=== PATIENT | female | born 1950 | race African-American/Black ===

== ENCOUNTER 2019-02-20 06:36 | Emergency (ER) | payer MEDICARE, MEDICAID ==
[~2019-02-20] VITALS: Ht 167.6 cm; Wt 58.0 kg
[~2019-02-20 06:36] MED LIST: DIPH25CA83 PO; Trazodone; amoxicillin; benazepril; loratadine; lotensin; multivitamins; nasonex
[2019-02-20] MEDS ORDERED: SODIUM CHLORIDE 0.9% 1,000 ML IV ONE (07:20)
[2019-02-20 08:22] LABS: BASOPHILS % 0.6 % (0.0-2.0); EOSINOPHILS % 6.9 % (0.0-5.0); HEMATOCRIT. 39.5 % (36.0-48.0); LYMPHOCYTES % 58.1 % (20.0-50.0); MEAN CORPUSCULAR HEMOGLOBIN 28.7 pg (28.0-32.0); MEAN CORPUSCULAR VOLUME 86.9 fL (81.0-99.0); MEAN PLATELET VOLUME 9.1 fl (7.4-10.4); MONOCYTES % 6.7 % (2.0-8.0); NEUTROPHILS % 27.7 % (40.0-76.0); PLATELET 267 x1000/uL (130-400); RED BLOOD CELL COUNT 4.55 mill/uL (4.2-5.4); RED CELL DISTRIBUTION WIDTH 15.4 % (11.6-14.6)
[2019-02-20 08:26] LABS: CHLORIDE 108 mEq/L (98-107); CLARITY URINE CLEAR (CLEAR); COLOR URINE YELLOW (YELLOW); KETONES URINE NEGATIVE (NEGATIVE); LEUKOCYTE ESTERASE URINE TRACE (NEGATIVE); NITRITE URINE NEGATIVE (NEGATIVE); OCCULT BLOOD URINE NEGATIVE (NEGATIVE); PROTEIN URINE NEGATIVE (NEGATIVE); SPECIFIC GRAVITY URINE 1.018 (1.005-1.030)
[2019-02-20 10:00] VITALS: BP 158/98
[2019-02-20] MEDS ORDERED: IOHEXOL-300 100 ML BOTTLE ONE (10:31)
== END 2019-02-20 10:00 | disposition home or self-care (01) ==
LOC: ER 06:36
DX: R10.84 Generalized abdominal pain (principal); I10 Essential (primary) hypertension; J45.909 Unspecified asthma, uncomplicated
CPT/HCPCS: 36415; 74177; 80053; 81003; 83690; 85025; 85610; 99284; J7030; Q9967

== ENCOUNTER 2019-04-21 08:50 | Emergency (ER) | payer MEDICARE, MEDICAID ==
[~2019-04-21] VITALS: Ht 167.6 cm; Wt 62.0 kg
[2019-04-21] MEDS ORDERED: IBUPROFEN 600MG TABLET PO ONE (11:30)
[2019-04-21] MEDS ORDERED: OXYCODONE HCL/ACETAMINOPHEN 5/325MG TABLET PO ONE (11:30)
[2019-04-21 12:47] VITALS: BP 132/91
== END 2019-04-21 12:49 | disposition home or self-care (01) ==
LOC: ER 08:50
DX: M79.605 Pain in left leg (principal); M79.604 Pain in right leg; I10 Essential (primary) hypertension; J45.909 Unspecified asthma, uncomplicated
CPT/HCPCS: 99283

== ENCOUNTER 2019-05-08 15:09 | Emergency (ER) | payer MEDICARE, MEDICAID ==
[~2019-05-08] VITALS: Ht 167.6 cm; Wt 63.0 kg
[2019-05-08] MEDS ORDERED: KETOROLAC 30MG/ML VIAL IM ONE (22:45)
[2019-05-08 22:55] VITALS: BP 149/80
[2019-05-08] MEDS ORDERED: CYCLOBENZAPRINE 10MG TABLET PO ONE (23:15)
== END 2019-05-08 23:52 | disposition home or self-care (01) ==
LOC: ER 15:09
DX: M54.5 Low back pain (principal); M54.30 Sciatica, unspecified side; I10 Essential (primary) hypertension; J45.909 Unspecified asthma, uncomplicated
CPT/HCPCS: 96372; 99283; J1885

== ENCOUNTER → 2020-02-21 | Outpatient (CLI) | payer MEDICARE, MEDICAID ==
[~2020-02-21] MED LIST changes: +BENA5TAB6 PO; +EMTR1TAB13 PO; +HYDR-4001 PO; +MULT-1146 PO; +TRAZ-251 PO
== END | disposition home or self-care (01) ==
LOC: LAB 12:53
PROVIDERS: ATTEND Neurological Surgery
DX: Z01.818 Encounter for other preprocedural examination (principal); Z11.59 Encounter for screening for other viral diseases
CPT/HCPCS: C9803; U0003

== ENCOUNTER → 2020-02-23 | Day surgery (SDC) | payer MEDICARE, MEDICAID ==
[~2020-02-23] VITALS: Ht 167.6 cm; Wt 64.4 kg
[~2020-02-23] MED LIST changes: +ALBU90AE INH; +ASCO500T20 PO; +BACITRACIN 50,000 UNITS/VIAL ONE; +CALCIUM CHLORIDE 1GM/10ML SYR IV ONE; +CEFAZOLIN SODIUM 1000MG/VIAL ONE; +DEXAMETHASONE 4MG/ML 1ML VIAL ONE; -DIPH25CA83 PO; +EPHEDRINE SULFATE 50MG/ML VIAL ONE; +FENTANYL CITRATE/PF 50MCG/ML 2ML VIAL ONE; +FERR325T23 PO; +GLYCOPYRROLATE 0.2 MG/ML 2ML VIAL ONE; +HYDROMORPHONE HCL/PF 2MG/ML (OR) ONE; +LACTATED RINGERS 1,000 ML IV SCH; +LIDOCAINE HCL/EPINEPHRINE 1%-EPI 1:100,000 20 ML VIAL ONE; +LIDOCAINE HCL/PF 1% 10 MG/ML 5ML VIAL ONE; +MIDAZOLAM HCL 2 MG/2 ML VIAL ONE; +NALOXONE HCL 0.4 MG/ML 1ML VIAL ONE; +NEOSTIGMINE METHYLSULFATE 1MG/ML 10 ML VIAL ONE; +ONDANSETRON HCL 4MG/2ML INJ ONE; +PROPOFOL 200MG/20ML VIAL IV ONE; +ROCURONIUM BROMIDE 10MG/ML VIAL 5ML IV ONE; +SODIUM CHLORIDE 0.9% 10ML VIAL ONE; +THROMBIN (BOVINE) 5000 UNITS/VIAL TOP ONE; -Trazodone; -amoxicillin; -benazepril; +inhaler INH; -loratadine; -lotensin; -multivitamins; -nasonex
[2020-02-23 08:54] LABS: BASOPHILS % 0.6 % (0.0-2.0); EOSINOPHILS % 4.2 % (0.0-5.0); HEMATOCRIT. 43.6 % (36.0-48.0); HEMOGLOBIN. 14.6 g/dL (12.0-16.0); LYMPHOCYTES % 22.7 % (20.0-50.0); MEAN CORPUSCULAR HEMOGLOBIN 30.2 pg (28.0-32.0); MEAN CORPUSCULAR VOLUME 90.2 fL (81.0-99.0); MEAN PLATELET VOLUME 8.7 fl (7.4-10.4); MONOCYTES % 4.4 % (2.0-8.0); NEUTROPHILS % 68.1 % (40.0-76.0); PLATELET 235 x1000/uL (130-400); RED BLOOD CELL COUNT 4.84 mill/uL (4.2-5.4); RED CELL DISTRIBUTION WIDTH 14.4 % (11.6-14.6)
[2020-02-23 09:15] LABS: PARTIAL THROMBOPLASTIN TIME 29.3 sec (23.4-31.0); PROTHROMBIN TIME 10.5 sec (9.6-11.0)
== END | disposition home or self-care (01) ==
LOC: OR 06:09
PROVIDERS: ATTEND Neurological Surgery
DX: M48.061 Spinal stenosis, lumbar region without neurogenic claudication (principal); M47.816 Spondylosis without myelopathy or radiculopathy, lumbar region; G82.20 Paraplegia, unspecified; M79.604 Pain in right leg; M79.605 Pain in left leg; Z79.899 Other long term (current) drug therapy; Z98.890 Other specified postprocedural states; Z87.891 Personal history of nicotine dependence; Z82.49 Family history of ischemic heart disease and other diseases of the circulatory system; Z83.3 Family history of diabetes mellitus
CPT/HCPCS: 36415; 80048; 85025; 86850; 86900; J2704; J3010; J3490

== ENCOUNTER 2020-02-28 23:00 | Inpatient (IN) | payer MEDICARE, MEDICAID ==
[~2020-02-28] VITALS: Ht 167.6 cm; Wt 68.0 kg
[2020-02-28 23:00] VITALS: BP 107/73
[~2020-02-28 23:00] MED LIST changes: -ASCO500T20 PO; -BACITRACIN 50,000 UNITS/VIAL ONE; -CALCIUM CHLORIDE 1GM/10ML SYR IV ONE; -CEFAZOLIN SODIUM 1000MG/VIAL ONE; -DEXAMETHASONE 4MG/ML 1ML VIAL ONE; -EPHEDRINE SULFATE 50MG/ML VIAL ONE; -FENTANYL CITRATE/PF 50MCG/ML 2ML VIAL ONE; -FERR325T23 PO; -GLYCOPYRROLATE 0.2 MG/ML 2ML VIAL ONE; -HYDROMORPHONE HCL/PF 2MG/ML (OR) ONE; -LACTATED RINGERS 1,000 ML IV SCH; -LIDOCAINE HCL/EPINEPHRINE 1%-EPI 1:100,000 20 ML VIAL ONE; -LIDOCAINE HCL/PF 1% 10 MG/ML 5ML VIAL ONE; -MIDAZOLAM HCL 2 MG/2 ML VIAL ONE; -NALOXONE HCL 0.4 MG/ML 1ML VIAL ONE; -NEOSTIGMINE METHYLSULFATE 1MG/ML 10 ML VIAL ONE; -ONDANSETRON HCL 4MG/2ML INJ ONE; -PROPOFOL 200MG/20ML VIAL IV ONE; -ROCURONIUM BROMIDE 10MG/ML VIAL 5ML IV ONE; -SODIUM CHLORIDE 0.9% 10ML VIAL ONE; -THROMBIN (BOVINE) 5000 UNITS/VIAL TOP ONE; -inhaler INH
[2020-02-29] MEDS ORDERED: DEXTROSE 50% WATER 50ML SYRINGE IV PRN (01:15)
[2020-02-29] MEDS ORDERED: MORPHINE SULFATE 4 MG/ML CPJ (NOT FOR IM USE) IV PRN (01:15)
[2020-02-29] MEDS ORDERED: ONDANSETRON HCL 4MG/2ML INJ IV PRN (01:15)
[2020-02-29] MEDS: DEXT 5%/LACTATED RINGERS 1,000 ML IV SCH ×2 (02:58→10:30)
[2020-02-29] MEDS: BLOOD SUGAR DIAGNOSTIC STRIP TEST SCH ×4 (06:35→20:31)
[2020-02-29] MEDS: HYDROCODONE/ACETAMINOPHEN 5/325MG TABLET PO PRN ×3 (06:57→21:23)
[2020-02-29 07:05] LABS: BASOPHILS % 0.4 % (0.0-2.0); EOSINOPHILS % 1.4 % (0.0-5.0); HEMOGLOBIN. 10.4 g/dL (12.0-16.0); LYMPHOCYTES % 25.9 % (20.0-50.0); MEAN CORPUSCULAR HEMOGLOBIN 30.2 pg (28.0-32.0); MEAN CORPUSCULAR VOLUME 89.8 fL (81.0-99.0); MEAN PLATELET VOLUME 8.9 fl (7.4-10.4); MONOCYTES % 10.4 % (2.0-8.0); NEUTROPHILS % 61.9 % (40.0-76.0); PLATELET 212 x1000/uL (130-400); RED BLOOD CELL COUNT 3.46 mill/uL (4.2-5.4); RED CELL DISTRIBUTION WIDTH 13.5 % (11.6-14.6)
[2020-02-29 07:11] LABS: CHLORIDE 97 mEq/L (98-107)
[2020-02-29 08:00] VITALS: BP 119/77
[2020-02-29] MEDS: SIMETHICONE 80MG TABLET CHEW PO PRN (08:20)
[2020-02-29] MEDS: BENAZEPRIL 5MG TABLET PO SCH (08:20)
[2020-02-29] MEDS: ODEFSEY PO SCH (08:21)
[2020-02-29] MEDS: INSULIN LISPRO 100 UNITS/ML SUBCUT SCH ×4 (08:22→20:38)
[2020-02-29] MEDS ORDERED: DOCUSATE SODIUM 250MG CAPSULE PO SCH (09:00)
[2020-02-29] MEDS: DOCUSATE SODIUM 100MG CAPSULE PO SCH (16:09)
[2020-02-29] MEDS: LACTULOSE 20G/30ML UDC PO SCH ×2 (16:09→20:31)
[2020-02-29 20:00] VITALS: BP 124/84
[2020-02-29] MEDS: POLYETHYLENE GLYCOL 3350 (17GM) 1 DOSE PACK PO SCH (20:31)
[2020-02-29] MEDS ORDERED: TRAZODONE HCL 50MG TABLET PO SCH (21:00)
[2020-03-01 01:37] LABS: CLARITY URINE CLEAR (CLEAR); COLOR URINE YELLOW (YELLOW); KETONES URINE NEGATIVE (NEGATIVE); LEUKOCYTE ESTERASE URINE NEGATIVE (NEGATIVE); NITRITE URINE NEGATIVE (NEGATIVE); OCCULT BLOOD URINE NEGATIVE (NEGATIVE); PH URINE 7.5 (4.5-8.0); PROTEIN URINE NEGATIVE (NEGATIVE); SPECIFIC GRAVITY URINE 1.007 (1.005-1.030)
[2020-03-01] MEDS: BLOOD SUGAR DIAGNOSTIC STRIP TEST SCH ×4 (05:46→21:00)
[2020-03-01] MEDS: HYDROCODONE/ACETAMINOPHEN 5/325MG TABLET PO PRN ×2 (05:47→15:02)
[2020-03-01] MEDS: SIMETHICONE 80MG TABLET CHEW PO PRN ×2 (05:54→23:11)
[2020-03-01] MEDS: INSULIN LISPRO 100 UNITS/ML SUBCUT SCH ×4 (05:56→21:00)
[2020-03-01 06:12] LABS: BASOPHILS % 0.4 % (0.0-2.0); EOSINOPHILS % 1.4 % (0.0-5.0); HEMATOCRIT. 29.3 % (36.0-48.0); HEMOGLOBIN. 10.1 g/dL (12.0-16.0); LYMPHOCYTES % 26.2 % (20.0-50.0); MEAN CORPUSCULAR HEMOGLOBIN 30.7 pg (28.0-32.0); MEAN CORPUSCULAR VOLUME 89.1 fL (81.0-99.0); MEAN PLATELET VOLUME 8.5 fl (7.4-10.4); MONOCYTES % 12.9 % (2.0-8.0); NEUTROPHILS % 59.1 % (40.0-76.0); PLATELET 261 x1000/uL (130-400); RED BLOOD CELL COUNT 3.29 mill/uL (4.2-5.4); RED CELL DISTRIBUTION WIDTH 13.5 % (11.6-14.6)
[2020-03-01 06:33] LABS: CHLORIDE 96 mEq/L (98-107)
[2020-03-01 06:50] LABS: PHOSPHORUS 2.8 mg/dL (2.5-4.9)
[2020-03-01 06:52] LABS: TOTAL IRON BINDING CAPACITY 371 ug/dL (250-450)
[2020-03-01 06:59] LABS: FOLIC ACID (FOLATE) SERUM 19.9 ng/mL (>5.38)
[2020-03-01 07:30] VITALS: BP 94/58
[2020-03-01] MEDS: DOCUSATE SODIUM 100MG CAPSULE PO SCH ×2 (08:31→16:38)
[2020-03-01] MEDS: BENAZEPRIL 5MG TABLET PO SCH (08:31)
[2020-03-01] MEDS: ODEFSEY PO SCH (08:32)
[2020-03-01] MEDS: LACTULOSE 20G/30ML UDC PO SCH (09:00)
[2020-03-01] MEDS: SIMETHICONE 80MG TABLET CHEW PO SCH ×2 (14:43→16:38)
[2020-03-01 14:55] VITALS: BP 110/65
[2020-03-01] MEDS: FERROUS SULFATE 325MG TABLET PO SCH (16:38)
[2020-03-01] MEDS: CYANOCOBALAMIN 1000MCG/ML VIAL IM SCH (16:38)
[2020-03-01 20:00] VITALS: BP 116/72
[2020-03-01] MEDS: POLYETHYLENE GLYCOL 3350 (17GM) 1 DOSE PACK PO SCH (22:12)
[2020-03-02] MEDS: HYDROCODONE/ACETAMINOPHEN 5/325MG TABLET PO PRN ×2 (04:20→07:58)
[2020-03-02 05:51] LABS: BASOPHILS % 0.4 % (0.0-2.0); EOSINOPHILS % 1.5 % (0.0-5.0); HEMATOCRIT. 30.4 % (36.0-48.0); HEMOGLOBIN. 10.6 g/dL (12.0-16.0); LYMPHOCYTES % 28.9 % (20.0-50.0); MEAN CORPUSCULAR VOLUME 89.1 fL (81.0-99.0); MEAN PLATELET VOLUME 8.5 fl (7.4-10.4); MONOCYTES % 11.1 % (2.0-8.0); NEUTROPHILS % 58.1 % (40.0-76.0); PLATELET 304 x1000/uL (130-400); RED BLOOD CELL COUNT 3.41 mill/uL (4.2-5.4); RED CELL DISTRIBUTION WIDTH 13.7 % (11.6-14.6)
[2020-03-02 06:15] LABS: CHLORIDE 94 mEq/L (98-107)
[2020-03-02] MEDS: BLOOD SUGAR DIAGNOSTIC STRIP TEST SCH ×4 (06:43→20:45)
[2020-03-02] MEDS: INSULIN LISPRO 100 UNITS/ML SUBCUT SCH ×4 (06:43→20:45)
[2020-03-02 08:00] VITALS: BP 122/62
[2020-03-02] MEDS: BENAZEPRIL 5MG TABLET PO SCH (09:29)
[2020-03-02] MEDS: ASCORBIC ACID 500 MG TABLET PO SCH (09:29)
[2020-03-02] MEDS: CYANOCOBALAMIN 1000MCG/ML VIAL IM SCH (09:29)
[2020-03-02] MEDS: SIMETHICONE 80MG TABLET CHEW PO SCH ×3 (09:29→16:18)
[2020-03-02] MEDS: FERROUS SULFATE 325MG TABLET PO SCH ×3 (09:29→16:17)
[2020-03-02] MEDS: DOCUSATE SODIUM 100MG CAPSULE PO SCH ×2 (09:29→16:18)
[2020-03-02] MEDS: ODEFSEY PO SCH (09:34)
[2020-03-02] MEDS ORDERED: MAGNESIUM/ALUMINUM HYDROXIDE/SIMETHICONE 30ML UDC PO PRN (10:45)
[2020-03-02] MEDS: CALCIUM CARBONATE 500MG TABLET CHEW PO PRN (11:53)
[2020-03-02] MEDS: HYDROCODONE/ACETAMINOPHEN 10/325MG TABLET PO PRN ×2 (11:55→19:46)
[2020-03-02] MEDS: FAMOTIDINE 20MG TABLET PO SCH (11:57)
[2020-03-02] MEDS: SODIUM CHLORIDE 0.9% 1,000 ML IV SCH (16:17)
[2020-03-02] MEDS: LACTULOSE 20G/30ML UDC PO SCH ×2 (16:17→20:00)
[2020-03-02 20:00] VITALS: BP 125/88
[2020-03-02] MEDS: POLYETHYLENE GLYCOL 3350 (17GM) 1 DOSE PACK PO SCH (20:45)
[2020-03-03] MEDS: SIMETHICONE 80MG TABLET CHEW PO PRN ×2 (00:50→19:11)
[2020-03-03] MEDS: HYDROCODONE/ACETAMINOPHEN 10/325MG TABLET PO PRN ×2 (02:31→09:32)
[2020-03-03] MEDS: BLOOD SUGAR DIAGNOSTIC STRIP TEST SCH ×4 (06:15→20:46)
[2020-03-03] MEDS: SODIUM CHLORIDE 0.9% 1,000 ML IV SCH ×2 (06:16→23:21)
[2020-03-03] MEDS: INSULIN LISPRO 100 UNITS/ML SUBCUT SCH ×4 (06:16→20:46)
[2020-03-03 08:02] LABS: BASOPHILS % 0.5 % (0.0-2.0); EOSINOPHILS % 2.6 % (0.0-5.0); HEMATOCRIT. 29.1 % (36.0-48.0); LYMPHOCYTES % 37.8 % (20.0-50.0); MEAN CORPUSCULAR HEMOGLOBIN 30.6 pg (28.0-32.0); MEAN CORPUSCULAR VOLUME 89.2 fL (81.0-99.0); MEAN PLATELET VOLUME 8.6 fl (7.4-10.4); MONOCYTES % 9.3 % (2.0-8.0); NEUTROPHILS % 49.8 % (40.0-76.0); PLATELET 328 x1000/uL (130-400); RED BLOOD CELL COUNT 3.27 mill/uL (4.2-5.4)
[2020-03-03 08:17] VITALS: BP 114/58
[2020-03-03 08:31] LABS: CHLORIDE 102 mEq/L (98-107)
[2020-03-03] MEDS: CYANOCOBALAMIN 1000MCG/ML VIAL IM SCH (08:56)
[2020-03-03] MEDS: BENAZEPRIL 5MG TABLET PO SCH (08:56)
[2020-03-03] MEDS: DOCUSATE SODIUM 100MG CAPSULE PO SCH ×2 (08:56→17:33)
[2020-03-03] MEDS: ASCORBIC ACID 500 MG TABLET PO SCH (08:57)
[2020-03-03] MEDS: FAMOTIDINE 20MG TABLET PO SCH (08:57)
[2020-03-03] MEDS: FERROUS SULFATE 325MG TABLET PO SCH ×3 (08:57→17:33)
[2020-03-03] MEDS: SIMETHICONE 80MG TABLET CHEW PO SCH ×2 (08:57→12:46)
[2020-03-03] MEDS: ODEFSEY PO SCH (08:57)
[2020-03-03] MEDS: HYDROCODONE/ACETAMINOPHEN 5/325MG TABLET PO PRN ×2 (14:33→20:52)
[2020-03-03 20:00] VITALS: BP 131/71
[2020-03-03] MEDS: POLYETHYLENE GLYCOL 3350 (17GM) 1 DOSE PACK PO SCH (20:46)
[2020-03-03] MEDS: ZOLPIDEM TARTRATE 5MG TABLET PO SCH (20:46)
[2020-03-04] MEDS: HYDROCODONE/ACETAMINOPHEN 10/325MG TABLET PO PRN ×3 (03:26→21:50)
[2020-03-04] MEDS: SIMETHICONE 80MG TABLET CHEW PO PRN ×2 (03:29→17:46)
[2020-03-04] MEDS: BLOOD SUGAR DIAGNOSTIC STRIP TEST SCH ×4 (05:34→21:35)
[2020-03-04] MEDS: INSULIN LISPRO 100 UNITS/ML SUBCUT SCH ×4 (05:35→21:00)
[2020-03-04 07:17] LABS: HEMOGLOBIN 10.1 g/dL (12.0-16.0); MEAN CORPUSCULAR HEMOGLOBIN 30.8 pg (28.0-32.0); PLATELET 373 x1000/uL (130-400); RED BLOOD CELL COUNT 3.26 mill/uL (4.2-5.4); RED CELL DISTRIBUTION WIDTH 13.7 % (11.6-14.6)
[2020-03-04 07:51] LABS: CHLORIDE 100 mEq/L (98-107)
[2020-03-04 08:00] VITALS: BP 101/63
[2020-03-04] MEDS: DOCUSATE SODIUM 100MG CAPSULE PO SCH ×2 (08:39→17:46)
[2020-03-04] MEDS: FERROUS SULFATE 325MG TABLET PO SCH ×3 (08:40→17:46)
[2020-03-04] MEDS: FAMOTIDINE 20MG TABLET PO SCH (08:40)
[2020-03-04] MEDS: ASCORBIC ACID 500 MG TABLET PO SCH (08:40)
[2020-03-04] MEDS: HYDROCODONE/ACETAMINOPHEN 5/325MG TABLET PO PRN (08:41)
[2020-03-04] MEDS: CYANOCOBALAMIN 1000MCG/ML VIAL IM SCH (08:42)
[2020-03-04] MEDS: BENAZEPRIL 5MG TABLET PO SCH (08:42)
[2020-03-04] MEDS: ODEFSEY PO SCH (08:43)
[2020-03-04] MEDS: CALCIUM CARBONATE 500MG TABLET CHEW PO PRN ×2 (08:52→13:15)
[2020-03-04] MEDS: SODIUM CHLORIDE 0.9% 1,000 ML IV SCH (14:59)
[2020-03-04] MEDS: POLYETHYLENE GLYCOL 3350 (17GM) 1 DOSE PACK PO SCH (21:35)
[2020-03-04] MEDS: ZOLPIDEM TARTRATE 5MG TABLET PO SCH (21:35)
[2020-03-04 21:47] VITALS: BP 118/56
[2020-03-05] MEDS ORDERED: LACTULOSE 20G/30ML UDC PO PRN (05:45)
[2020-03-05] MEDS: SODIUM CHLORIDE 0.9% 1,000 ML IV SCH (05:58)
[2020-03-05] MEDS: BLOOD SUGAR DIAGNOSTIC STRIP TEST SCH ×4 (05:58→21:34)
[2020-03-05] MEDS: SIMETHICONE 80MG TABLET CHEW PO PRN ×2 (06:34→13:16)
[2020-03-05 06:41] LABS: HEMATOCRIT 30.7 % (36.0-48.0); HEMOGLOBIN 10.8 g/dL (12.0-16.0); MEAN CORPUSCULAR VOLUME 88.6 fL (81.0-99.0); PLATELET 421 x1000/uL (130-400); RED BLOOD CELL COUNT 3.47 mill/uL (4.2-5.4); RED CELL DISTRIBUTION WIDTH 13.7 % (11.6-14.6)
[2020-03-05 06:49] LABS: CHLORIDE 99 mEq/L (98-107)
[2020-03-05 08:00] VITALS: BP 144/88
[2020-03-05] MEDS: CALCIUM CARBONATE 500MG TABLET CHEW PO PRN (08:46)
[2020-03-05] MEDS: CYANOCOBALAMIN 1000MCG/ML VIAL IM SCH (08:46)
[2020-03-05] MEDS: BENAZEPRIL 5MG TABLET PO SCH (08:46)
[2020-03-05] MEDS: DOCUSATE SODIUM 100MG CAPSULE PO SCH ×2 (08:46→16:12)
[2020-03-05] MEDS: ASCORBIC ACID 500 MG TABLET PO SCH (08:46)
[2020-03-05] MEDS: FAMOTIDINE 20MG TABLET PO SCH (08:47)
[2020-03-05] MEDS: HYDROCODONE/ACETAMINOPHEN 10/325MG TABLET PO PRN ×2 (08:47→16:22)
[2020-03-05] MEDS: FERROUS SULFATE 325MG TABLET PO SCH ×3 (08:47→16:12)
[2020-03-05] MEDS: ODEFSEY PO SCH (08:48)
[2020-03-05] MEDS: INSULIN LISPRO 100 UNITS/ML SUBCUT SCH ×4 (09:00→21:00)
[2020-03-05 20:00] VITALS: BP 140/86
[2020-03-05] MEDS: POLYETHYLENE GLYCOL 3350 (17GM) 1 DOSE PACK PO SCH (21:35)
[2020-03-05] MEDS: ZOLPIDEM TARTRATE 5MG TABLET PO SCH (21:35)
[2020-03-06] MEDS: SODIUM CHLORIDE 0.9% 1,000 ML IV SCH ×2 (02:37→17:47)
[2020-03-06] MEDS: HYDROCODONE/ACETAMINOPHEN 10/325MG TABLET PO PRN (02:37)
[2020-03-06] MEDS: BLOOD SUGAR DIAGNOSTIC STRIP TEST SCH ×4 (05:53→20:34)
[2020-03-06] MEDS: HYDROCODONE/ACETAMINOPHEN 5/325MG TABLET PO PRN ×2 (07:34→13:53)
[2020-03-06 08:00] VITALS: BP 110/53
[2020-03-06] MEDS: DOCUSATE SODIUM 100MG CAPSULE PO SCH ×2 (08:28→17:00)
[2020-03-06] MEDS: BENAZEPRIL 5MG TABLET PO SCH (08:28)
[2020-03-06] MEDS: FERROUS SULFATE 325MG TABLET PO SCH ×3 (08:28→17:41)
[2020-03-06] MEDS: ODEFSEY PO SCH (08:28)
[2020-03-06] MEDS: FAMOTIDINE 20MG TABLET PO SCH (08:28)
[2020-03-06] MEDS: ASCORBIC ACID 500 MG TABLET PO SCH (08:29)
[2020-03-06] MEDS: INSULIN LISPRO 100 UNITS/ML SUBCUT SCH ×4 (09:00→20:42)
[2020-03-06] MEDS ORDERED: SODIUM POLYSTYRENE SULFONATE 15 G/60 ML BOT PO ONE (10:30)
[2020-03-06] MEDS: SIMETHICONE 80MG TABLET CHEW PO PRN (12:15)
[2020-03-06] MEDS ORDERED: IPRATROPIUM/ALBUTEROL 0.5-3(2.5)MG/3ML NEB HHN PRN (16:15)
[2020-03-06 17:40] LABS: BASOPHILS % 0.7 % (0.0-2.0); EOSINOPHILS % 2.6 % (0.0-5.0); HEMATOCRIT. 30.1 % (36.0-48.0); HEMOGLOBIN. 10.5 g/dL (12.0-16.0); LYMPHOCYTES % 29.8 % (20.0-50.0); MEAN CORPUSCULAR HEMOGLOBIN 31.3 pg (28.0-32.0); MEAN CORPUSCULAR VOLUME 89.8 fL (81.0-99.0); MEAN PLATELET VOLUME 8.2 fl (7.4-10.4); MONOCYTES % 7.9 % (2.0-8.0); PLATELET 462 x1000/uL (130-400); RED BLOOD CELL COUNT 3.35 mill/uL (4.2-5.4); RED CELL DISTRIBUTION WIDTH 13.9 % (11.6-14.6)
[2020-03-06 17:45] LABS: CHLORIDE 98 mEq/L (98-107)
[2020-03-06 20:00] VITALS: BP 111/66
[2020-03-06] MEDS: ZOLPIDEM TARTRATE 5MG TABLET PO SCH (20:34)
[2020-03-06] MEDS: POLYETHYLENE GLYCOL 3350 (17GM) 1 DOSE PACK PO SCH (20:34)
[2020-03-06] MEDS ORDERED: SODIUM POLYSTYRENE SULFONATE 15 G/60 ML BOT PO NR (23:00)
[2020-03-07] MEDS: BLOOD SUGAR DIAGNOSTIC STRIP TEST SCH ×4 (05:39→20:45)
[2020-03-07] MEDS: HYDROCODONE/ACETAMINOPHEN 10/325MG TABLET PO PRN (05:47)
[2020-03-07 06:44] LABS: EOSINOPHILS % 1.6 % (0.0-5.0); HEMOGLOBIN. 10.6 g/dL (12.0-16.0); LYMPHOCYTES % 30.6 % (20.0-50.0); MEAN CORPUSCULAR HEMOGLOBIN 30.4 pg (28.0-32.0); MEAN CORPUSCULAR VOLUME 88.6 fL (81.0-99.0); MONOCYTES % 6.7 % (2.0-8.0); NEUTROPHILS % 60.1 % (40.0-76.0); PLATELET 493 x1000/uL (130-400); RED CELL DISTRIBUTION WIDTH 13.9 % (11.6-14.6)
[2020-03-07 06:50] LABS: CHLORIDE 98 mEq/L (98-107)
[2020-03-07 07:58] VITALS: BP 122/72
[2020-03-07] MEDS: INSULIN LISPRO 100 UNITS/ML SUBCUT SCH ×4 (09:00→20:53)
[2020-03-07] MEDS: DOCUSATE SODIUM 100MG CAPSULE PO SCH ×3 (09:00→17:00)
[2020-03-07] MEDS: FERROUS SULFATE 325MG TABLET PO SCH ×3 (09:01→17:01)
[2020-03-07] MEDS: FAMOTIDINE 20MG TABLET PO SCH (09:01)
[2020-03-07] MEDS: ODEFSEY PO SCH (09:01)
[2020-03-07] MEDS: ASCORBIC ACID 500 MG TABLET PO SCH (09:03)
[2020-03-07] MEDS: SODIUM CHLORIDE 0.9% 1,000 ML IV SCH (11:27)
[2020-03-07] MEDS: SIMETHICONE 80MG TABLET CHEW PO PRN ×2 (11:27→20:45)
[2020-03-07] MEDS: CALCIUM CARBONATE 500MG TABLET CHEW PO PRN (11:27)
[2020-03-07] MEDS: HYDROCODONE/ACETAMINOPHEN 5/325MG TABLET PO PRN (14:37)
[2020-03-07 20:00] VITALS: BP 125/70
[2020-03-07] MEDS: POLYETHYLENE GLYCOL 3350 (17GM) 1 DOSE PACK PO SCH (20:45)
[2020-03-07] MEDS: ZOLPIDEM TARTRATE 5MG TABLET PO SCH (20:45)
[2020-03-08] MEDS: HYDROCODONE/ACETAMINOPHEN 5/325MG TABLET PO PRN ×4 (01:31→16:56)
[2020-03-08] MEDS: BLOOD SUGAR DIAGNOSTIC STRIP TEST SCH ×4 (06:43→21:02)
[2020-03-08] MEDS: INSULIN LISPRO 100 UNITS/ML SUBCUT SCH ×4 (06:44→21:00)
[2020-03-08] MEDS: SODIUM CHLORIDE 0.9% 1,000 ML IV SCH ×2 (06:44→19:45)
[2020-03-08 08:06] VITALS: BP 122/72
[2020-03-08] MEDS: DOCUSATE SODIUM 100MG CAPSULE PO SCH ×2 (08:41→16:16)
[2020-03-08] MEDS: ASCORBIC ACID 500 MG TABLET PO SCH (08:41)
[2020-03-08] MEDS: ODEFSEY PO SCH (08:42)
[2020-03-08] MEDS: FERROUS SULFATE 325MG TABLET PO SCH ×3 (08:42→16:15)
[2020-03-08] MEDS: FAMOTIDINE 20MG TABLET PO SCH (08:42)
[2020-03-08] MEDS: CALCIUM CARBONATE 500MG TABLET CHEW PO PRN (12:36)
[2020-03-08] MEDS: SIMETHICONE 80MG TABLET CHEW PO PRN ×2 (16:15→21:04)
[2020-03-08] MEDS ORDERED: FERR325T23 PO (19:55)
[2020-03-08] MEDS ORDERED: ASCO500T20 PO (19:55)
[2020-03-08 20:00] VITALS: BP 129/62
[2020-03-08] MEDS: POLYETHYLENE GLYCOL 3350 (17GM) 1 DOSE PACK PO SCH (21:00)
[2020-03-08] MEDS: ZOLPIDEM TARTRATE 5MG TABLET PO SCH (21:04)
[2020-03-09] MEDS: HYDROCODONE/ACETAMINOPHEN 5/325MG TABLET PO PRN ×2 (02:16→06:49)
[2020-03-09 04:10] LABS: 25-HYDROXY VITAMIN D3 37 ng/mL (.)
[2020-03-09] MEDS: BLOOD SUGAR DIAGNOSTIC STRIP TEST SCH (06:42)
[2020-03-09] MEDS: INSULIN LISPRO 100 UNITS/ML SUBCUT SCH (06:49)
[2020-03-09 08:06] VITALS: BP 115/58
[2020-03-09] MEDS: ASCORBIC ACID 500 MG TABLET PO SCH (08:50)
[2020-03-09] MEDS: FAMOTIDINE 20MG TABLET PO SCH (08:50)
[2020-03-09] MEDS: FERROUS SULFATE 325MG TABLET PO SCH (08:50)
[2020-03-09] MEDS: ODEFSEY PO SCH (08:51)
[2020-03-09] MEDS: DOCUSATE SODIUM 100MG CAPSULE PO SCH (08:53)
[2020-03-09] MEDS ORDERED: MULT-1146 PO (08:54)
[2020-03-09] MEDS ORDERED: ALBU90AE INH (08:54)
[2020-03-09 09:21] VITALS: BP 115/58
== END 2020-03-09 12:07 | disposition home health service (06) | DRG 552 ==
PROVIDERS: ADMIT Physical Medicine & Rehabilitation Spinal Cord Injury Medicine; ATTEND Internal Medicine
DX: M47.816 Spondylosis without myelopathy or radiculopathy, lumbar region (principal); E87.1 Hypo-osmolality and hyponatremia; G82.20 Paraplegia, unspecified; K59.2 Neurogenic bowel, not elsewhere classified; E46 Unspecified protein-calorie malnutrition; I42.9 Cardiomyopathy, unspecified; D64.9 Anemia, unspecified; D72.829 Elevated white blood cell count, unspecified; I10 Essential (primary) hypertension; K59.00 Constipation, unspecified; R13.10 Dysphagia, unspecified; M48.062 Spinal stenosis, lumbar region with neurogenic claudication; N31.9 Neuromuscular dysfunction of bladder, unspecified; E11.65 Type 2 diabetes mellitus with hyperglycemia; E61.1 Iron deficiency; E87.5 Hyperkalemia; I11.9 Hypertensive heart disease without heart failure; J44.9 Chronic obstructive pulmonary disease, unspecified; K21.9 Gastro-esophageal reflux disease without esophagitis; K75.9 Inflammatory liver disease, unspecified; R53.81 Other malaise; R26.89 Other abnormalities of gait and mobility; Z82.49 Family history of ischemic heart disease and other diseases of the circulatory system; Z83.3 Family history of diabetes mellitus; Z68.24 Body mass index [BMI] 24.0-24.9, adult; Z79.84 Long term (current) use of oral hypoglycemic drugs; Z87.891 Personal history of nicotine dependence
CPT/HCPCS: 36415; 71046; 80048; 80053; 80061; 81003; 82306; 82533; 82607; 82728; 82746; 82962; 83540; 83550; 83735; 83930; 83935; 84100; 84134; 84443; 85025; 85027; 92610; 93970; 97110; 97116; 97162; 97166; 97530; 97535; J3420; J7030; J7121